=== PATIENT | male | born 1950 | race Caucasian/White ===

== ENCOUNTER 2018-09-11 10:10 | Inpatient (IN) | payer MEDICARE ==
[2018-09-11] MEDS ORDERED: Ondansetron HCl/PF 4 MG/2 ML Vial ONE (10:12)
[2018-09-11 10:26] LABS: #Eosinphils 0.1 thou/uL (0.0-0.7); #Monocytes 0.3 thou/uL (0.11-0.59); #Neutrophils 3.7 thou/uL (1.40-6.50); %Basophils 0.9 % (0.0-1.0); %Eosinophils 1.1 % (0.0-10.0); %Lymphocytes 19.3 % (21.0-51.0); %Monocytes 6.4 % (0.0-10.0); %Neutrophils 72.3 % (42.0-75.0); Hemoglobin 14.1 g/dL (14.0-18.0); Mean Corpuscular HGB CONC 34.8 g/dL (32.0-36.0); Mean Corpuscular Hemoglobin 36.6 pg (27.0-31.0); Mean Platelet Volume 7.8 fL (7.4-10.4); Platelet Count 123 thou/uL (130-400); RBC Distribution Width 11.2 % (11.5-14.5); Red Blood Cell (RBC) Count 3.86 mill/uL (4.70-6.10); White Blood Cell (WBC) Count 5.1 thou/uL (4.8-10.8)
[2018-09-11 10:34] LABS: INR-International Normal Ratio 1.3; PTT 34.3 SEC (22.9-36.1); Prothrombin Time 16.3 SEC (12.0-14.7)
[2018-09-11 10:44] LABS: ALT (SGPT) 48 U/L (8-55); AST (SGOT) 79 U/L (5-34); Albumin 4.1 g/dL (3.4-4.8); Alkaline Phosphatase 66 U/L (40-150); Anion Gap 21 mmol/L (10-20); BUN (Urea Nitrogen) 7 mg/dL (8.4-25.7); Bilirubin, Total 1.4 mg/dL (0.2-1.2); CK (CPK) 47 U/L (30-200); Calc. Creatinine Clearance 0 mL/min (70-130); Calcium 8.7 mg/dL (7.8-10.44); Carbon Dioxide 22 mmol/L (23-31); Chloride 99 mmol/L (98-107); Estimated GFR-MDRD 77; Globulin 3.3 g/dL (2.4-3.5); Glucose 109 mg/dL (80-115); Potassium 4.3 mmol/L (3.5-5.1); Protein, Total 7.4 g/dL (5.8-8.1); Sodium 138 mmol/L (136-145)
[2018-09-11 10:48] LABS: CKMB 2.2 ng/mL (0-6.6); Troponin I Less than 0.010 ng/mL (< 0.028)
--- NOTE | 2018-09-11 10:58 | CT ---
HEAD CT NONCONTRAST: INDICATIONS: Altered mental status. Slurred speech. Hypertension. FINDINGS: Mild global atrophy with mild chronic ischemic disease. No acute intracranial hemorrhage, mass effec t, or midline shift. There is compensatory dilatation of the ventricular system. Scattered retentio n cyst formation of the paranasal sinuses. IMPRESSION: No acute intracranial hemorrhage or mass effect. Telephone call placed to ER physician at 1015 hours on 09/11/2018. CODE CR POS: [facility]
[2018-09-11] MEDS ORDERED: niCARdipine 20MG In NaCl 20 MG/200 ML BAG ONE (11:03)
--- NOTE | 2018-09-11 11:04 | CT ---
CTA HEAD WITH CONTRAST WITH 3D VOLUME RENDERING CTA NECK WITH CONTRAST WITH 3D VOLUME RENDERING: Date: 09/11/18 INDICATION: Expressive aphasia, which began previous evening. Hypertension. FINDINGS: There is atherosclerosis of the aortic arch and the proximal great vessels that emanate from the aort ic arch. The bilateral common carotid arteries reveal mild multifocal scattered atherosclerosis. Ther e is prominent calcified plaque formation at each carotid bulb, which are obscured, as are the proxim al aspects of each cervical ICA due to extensive motion which precludes assessment of these regions. The mid to distal bilateral cervical ICA reveal no high grade stenosis or occlusion. There is moderat e calcific plaque of each carotid siphon. There is a dominant left vertebral artery. A small caliber right vertebral artery is present. There is scattered mild calcification of the left vertebral artery . There is a tortuous, patent basilar artery. Small caliber bilateral posterior cerebral arteries are seen. No high grade stenosis or occlusion of either MCA or MAHENDRA. Anterior communicating artery is unr emarkable. There is incidental note of pulmonary emphysema. IMPRESSION: Scattered atherosclerotic vascular disease. There is limitation by motion as discussed above. Where v isualized, there is no high grade stenosis or occlusion. Findings conveyed to stroke nurse at 1040 hours, 09/11/18. CODE CR. POS: [facility]
--- NOTE | 2018-09-11 11:34 | RAD ---
PORTABLE CHEST: History: Hypertension, stroke alert. FINDINGS: Heart size is enlarged. There are atherosclerotic changes of the aorta. Lungs show chronic change. No focal infiltrates or signs of failure. IMPRESSION: Cardiomegaly. POS: [facility]
--- NOTE | 2018-09-11 13:37 | HP ---
PRIMARY CARE PHYSICIAN: Cortney Byrd, Family Nurse Practitioner. REASON FOR ADMISSION: Hypertensive encephalopathy, rule out CVA. HISTORY OF PRESENT ILLNESS: A 68-year-old male who has underlying history of atrial fibrillation on chronic anticoagulation with Eliquis, who presented to emergency room for evaluation of altered mental status. This patient was completely fine before he went to bed. This morning around 8:30 when he woke up , he was seated at the edge of the bed and his noticed that the patient was disoriented. He was having impaired speech. Whatever he was talking, it was difficult to understand. Patient also appeared disoriented. He was not knowing where he was. He did not have any facial asymmetry. He was not having any headache. Normally, the patient goes to bathroom, but he was not able to go and whenever he was trying to wear slipper through the right foot, he was not able to wear slipper on the right foot. The patient's is not sure about any objective weakness on either side, but only she noticed that he was completely confused. She was worried about stroke and that is why Paramedics was called. When Paramedics went to his home, his blood pressure was 230/130. Patient was diaphoretic. The patient does generally have tremors, which is not new. The patient is alcoholic. He drinks almost 4-5 glasses of vodka daily and last drink was last night. He did not have any head injury. He was complaining of headache. After coming to the emergency room, he was able to move all four limbs. Initially in the emergency room, Cardene drip was started. His blood pressure was improved to 157/97 and patient was also improving and that is why Cardene drip was discontinued, and we gave him all his oral medication which he did not take this morning. In the emergency room, he had a CT head and CT angiography which was unremarkable for any acute stroke. The patient is being admitted to stroke floor for further evaluation and treatment. REVIEW OF SYSTEMS: The following complete review of systems was negative, unless otherwise mentioned in the HPI or below: Constitutional: Weight loss or gain, ability to conduct usual activities. Skin: Rash, itching. Eyes: Double vision, pain. ENT/Mouth: Nose bleeding, neck stiffness, pain, tenderness. Cardiovascular: Palpitations, dyspnea on exertion, orthopnea. Respiratory: Shortness of breath, wheezing, cough, hemoptysis, fever or night sweats. Gastrointestinal: Poor appetite, abdominal pain, heartburn, nausea, vomiting, constipation, or diarrhea. Genitourinary: Urgency, frequency, dysuria, nocturia. Musculoskeletal: Pain, swelling. Neurologic/Psychiatric: Anxiety, depression. Allergy/Immunologic: Skin rash, bleeding tendency. Please see my HPI for pertinent positive and negative. All other review of system reviewed and negative except as mentioned in the HPI. PAST MEDICAL HISTORY: Diabetes type 2, hypertension, obesity, atrial fibrillation, chronic anticoagulation, alcohol abuse, hypothyroidism, dyslipidemia. PAST SURGICAL HISTORY: Colon surgery. PAST PSYCHIATRIC HISTORY: Reviewed and negative. SOCIAL HISTORY: Patient drinks about 5 glasses of vodka every day basis. He denies any smoking. He is . He lives at home with his . FAMILY HISTORY: No family history of stroke, cancer, or coronary artery disease. EMERGENCY ROOM COURSE: The patient initially received nicardipine drip, Zofran 4 mg, now patient is receiving his home medication and labetalol p.r.n. basis. ALLERGIES: No known drug allergy. CURRENT HOME MEDICATIONS: Coreg 6.25 mg twice daily, Synthroid 88 mcg p.o. daily, lisinopril 5 mg p.o. daily, Metformin 500 mg p.o. twice daily, Zocor 10 mg p.o. at bedtime, Eliquis 5 mg p.o. b.i.d., cetirizine 10 mg p.o. daily. PHYSICAL EXAMINATION: VITAL SIGNS: On arrival, blood pressure 184/113, currently blood pressure 157/ 97, pulse 78 and irregular, respiratory rate 18, temperature 99.2, saturation 93 % on room air, weight 110 kilograms. GENERAL: Patient is currently alert, awake, follows simple commands, slightly disoriented, hypertensive. HEENT: Normocephalic, atraumatic. Eyes: Pupils round, reactive to light. Extraocular muscle intact. ENT: Oropharynx within normal limits. Moist mucous membranes. No oral lesion, no pharyngeal erythema, no exudate. NECK: Supple, no JVD, no thyromegaly, no carotid bruit. LUNGS: No rhonchi, no rales, no accessory muscles of respiration in use. CARDIAC: S1, S2 irregular. No gross murmur elicited, no gallop, no rub. ABDOMEN: Obesity present. Bowel sounds present, nontender, nondistended. No organomegaly, no mass, no suprapubic tenderness. BACK: Unremarkable, no CVA tenderness. EXTREMITIES: Upper extremity, passive movement of all joints are normal. Good distal pulsation. Lower extremities, no edema. Good distal pulsation. SKIN: No skin rash, but the patient has +2 facial plethora. PSYCHIATRIC: Normal affect. NEUROLOGIC: Nonfocal examination. At this point, the patient's speech is able to be understandable, but he is slightly confused and incoherent, but he is able to move his all 4 limbs. He does have normal baseline tremors. Patient does have neuropathic discomfort in both feet. SIGNIFICANT LABORATORY DATA: CT of brain based on my review, no acute intracranial process. CT angiography head and neck showing atherosclerotic vascular disease. Chest x-ray based on my review, no acute cardiopulmonary process. CBC: WBC 5.1, hemoglobin 14.1, MCV 105.0, platelet 123. INR 1.3. BMP: Sodium 138, potassium 4.3, chloride 99, carbon dioxide 22, anion gap 21, BUN 7, creatinine 0.97, glucose 109, calcium 8.7. LFT: Bilirubin 1.4, AST 79, ALT 48, alkaline phosphatase 66, albumin 4.1. CK 47, CK-MB 2.2, troponin I less than 0.010. Chest x-ray based on my review, no acute cardiopulmonary process. EKG showing atrial fibrillation. ASSESSMENT AND PLAN: 1. Hypertensive encephalopathy. This patient is currently confused, incoherent and his blood pressure was very high at the scene. Current confusion episode and altered mental status can be related with hypertensive encephalopathy. At this point, CT brain and CT angiography are not showing any acute ischemic insult. We will closely monitor on stroke floor for neuro check. 2. Rule out cerebrovascular accident. The patient was found initially to have slight weakness on the right side and slurred speech as well as altered mental status. Current workup, CT brain angiography is negative. We will do MRI brain for further evaluation. We will obtain echocardiography to assess ejection fraction and other structural abnormality. This patient has multiple risk factors for having stroke. 3. Hypertensive urgency/emergency. The patient's blood pressure is now stabilized in the emergency room. We will use p.r.n. basis hydralazine, labetalol, and clonidine p.r.n. basis. We will resume his home medications with Coreg and lisinopril. 4. Diabetes type 2. We will check hemoglobin A1c. Continue insulin as per sliding scale per protocol. 5. Hypothyroidism. Check TSH and continue Synthroid 88 mcg p.o. daily. 6. Atrial fibrillation, currently rate controlled. Continue Coreg 6.25 mg twice daily, anticoagulation with Eliquis 5 mg twice daily. Monitor on telemetry floor. Echocardiography and do serial cardiac enzymes x3. 7. Dyslipidemia. Check lipid profile again tomorrow and continue Zocor 10 mg p.o. at bedtime. 8. Alcohol abuse. The patient is at high risk for alcohol withdrawal. We will use Ativan on p.r.n. basis. We will also start folic acid, vitamin B12 and thiamine therapy. Counseling is given to patient to avoid alcohol abuse. 9. Microcytic anemia due to alcohol. Continue folic acid, vitamin B12 therapy. 10. Thrombocytopenia likely related with alcohol. 11. Abnormal liver function tests related with alcohol abuse, may be fatty liver. 12. Anion gap acidosis due to his alcohol abuse. 13. Deep venous thrombosis prophylaxis. The patient is already on Eliquis therapy. 14. Gastrointestinal prophylaxis. Pepcid 20 mg p.o. b.i.d. 14. Code status: The patient is FULL CODE. The patient's is surrogate decision maker. DISPOSITION PLAN: Based on clinical course. We are expecting patient's stay in hospital more than 2 midnights. Plan of care discussed with the patient and family member at bedside in the emergency room in detail. CHANDRAKANT
[2018-09-11] MEDS ORDERED: hydrALAZINE 20 MG/ML VIAL SLOW IVP PRN (15:21)
[2018-09-11] MEDS ORDERED: Calcium Carbonate 500 MG ChewTAB PO PRN (15:21)
[2018-09-11] MEDS ORDERED: Labetalol HCl 100 MG/20 ML VIAL SLOW IVP PRN (15:21)
[2018-09-11] MEDS ORDERED: Artificial Tears 18 DROP/0.9 ML EA EYE PRN (15:21)
[2018-09-11] MEDS ORDERED: HumaLOG 300 UNITS/3 ML VIAL SC PRN ×2 (15:21)
[2018-09-11] MEDS ORDERED: Lorazepam 2 MG/ML VIAL SLOW IVP PRN (15:21)
[2018-09-11] MEDS ORDERED: Bisacodyl 10 MG SUPP PR PRN (15:21)
[2018-09-11] MEDS ORDERED: Ondansetron ODT 4 MG TAB PO PRN (15:21)
[2018-09-11] MEDS ORDERED: Eucerin (Mineral Oil/Petrolatum,White) 30 gm Jar TOP PRN (15:21)
[2018-09-11] MEDS ORDERED: Lorazepam 1 MG TAB PO PRN (15:21)
[2018-09-11] MEDS ORDERED: Diazepam 5 MG TAB PO PRN (15:21)
[2018-09-11] MEDS ORDERED: cloNIDine 0.1 MG TAB PO PRN (15:21)
[2018-09-11] MEDS ORDERED: Dextrose 50% Abboject 50 ML SYRINGE SLOW IVP PRN (15:21)
[2018-09-11] MEDS ORDERED: Acetaminophen 325 MG TAB PO PRN (15:21)
[2018-09-11] MEDS ORDERED: Bisacodyl 5 MG TAB PO PRN (15:21)
[2018-09-11] MEDS ORDERED: Dextrose 5% in Water 1,000 ML IV PRN (15:21)
[2018-09-11] MEDS ORDERED: Loratadine 10 MG TAB PO PRN (15:21)
[2018-09-11] MEDS ORDERED: Zolpidem Tartrate 5 MG TAB PO PRN (15:21)
[2018-09-11] MEDS ORDERED: Loperamide HCl 2 MG CAP PO PRN (15:21)
[2018-09-11] MEDS ORDERED: HYDROcodone/Acetaminophen 5/325 mg Tablet PO PRN (15:21)
[2018-09-11] MEDS ORDERED: Ondansetron HCl/PF 4 MG/2 ML Vial IVP PRN (15:21)
[2018-09-11] MEDS ORDERED: Diabetic Tussin 200 MG/10 ML UDCUP PO PRN (15:21)
[2018-09-11] MEDS ORDERED: Sodium Chloride 0.65% Nasal 44 ML BOT EA NARE PRN (15:21)
[2018-09-11 15:54] VITALS: BMI 32.1
[2018-09-11] MEDS ORDERED: ISOVUE-370 76%-LOCM 1 ML ONE (16:06)
[2018-09-11] MEDS: Carvedilol 6.25 MG TAB PO SCH (16:52)
--- NOTE | 2018-09-11 19:06 | MRI ---
MRI BRAIN NONCONTRAST: 09/11/18 HISTORY: Altered mental status. TIA. FINDINGS: There is no evidence of acute intracranial hemorrhage or infarct. Ventricles appear normal in size, s hape and position. Mild diffuse cortical atrophy and chronic ischemic small vessel disease. No mass e ffector shift of midline structures. Mucosal thickening within each maxillary sinus. IMPRESSION: No acute intracranial abnormalities are demonstrated. POS: [facility]
[2018-09-11] MEDS ORDERED: Atorvastatin Calcium 40 MG TAB PO SCH (21:00)
[2018-09-11] MEDS: Apixaban 5 MG TAB PO SCH (21:04)
[2018-09-11] MEDS: Famotidine 20 MG TAB PO SCH (21:04)
[2018-09-12] MEDS ORDERED: Lorazepam 1 MG TAB PO PRN (03:22)
[2018-09-12 05:18] LABS: #Eosinphils 0.1 thou/uL (0.0-0.7); #Lymphocytes 1.2 thou/uL (1.20-3.40); #Monocytes 0.4 thou/uL (0.11-0.59); #Neutrophils 1.9 thou/uL (1.40-6.50); %Basophils 0.5 % (0.0-1.0); %Eosinophils 1.6 % (0.0-10.0); %Lymphocytes 32.4 % (21.0-51.0); %Monocytes 11.6 % (0.0-10.0); %Neutrophils 53.9 % (42.0-75.0); Hemoglobin 13.2 g/dL (14.0-18.0); Mean Corpuscular HGB CONC 32.9 g/dL (32.0-36.0); Mean Platelet Volume 7.9 fL (7.4-10.4); Platelet Count 99 thou/uL (130-400); RBC Distribution Width 11.2 % (11.5-14.5); Red Blood Cell (RBC) Count 3.77 mill/uL (4.70-6.10); White Blood Cell (WBC) Count 3.6 thou/uL (4.8-10.8)
[2018-09-12 05:24] LABS: ALT (SGPT) 35 U/L (8-55); AST (SGOT) 47 U/L (5-34); Albumin 3.7 g/dL (3.4-4.8); Alkaline Phosphatase 57 U/L (40-150); Anion Gap 14 mmol/L (10-20); BUN (Urea Nitrogen) 14 mg/dL (8.4-25.7); Bilirubin, Total 1.5 mg/dL (0.2-1.2); Calc. Creatinine Clearance 98 mL/min (70-130); Calcium 8.5 mg/dL (7.8-10.44); Carbon Dioxide 30 mmol/L (23-31); Cardiac Risk 2.1 (Less than 4.5); Chloride 100 mmol/L (98-107); Cholesterol 127 mg/dl (< 200 Desired); Estimated GFR-MDRD 68; Glucose 105 mg/dL (80-115); HDL Cholesterol 61 mg/dL (>60 Neg Risk); LDL Cholesterol, Calculated 52 mg/dL; Potassium 3.6 mmol/L (3.5-5.1); Protein, Total 6.7 g/dL (5.8-8.1); Sodium 140 mmol/L (136-145); Triglycerides 72 mg/dL (Less than 150)
[2018-09-12] MEDS ORDERED: Levothyroxine Sodium 88 MCG TAB PO SCH (06:00)
[2018-09-12 06:57] LABS: Syphilis Antibody Nonreactive (Nonreactive); Syphilis Antibody Index 0.08 S/CO (<1.00 Non-Reactive)
[2018-09-12] MEDS ORDERED: Lisinopril 5 MG TAB PO SCH (09:00)
[2018-09-12] MEDS ORDERED: Folic Acid 1 MG TAB PO SCH ×2 (09:00)
[2018-09-12] MEDS ORDERED: Magnesium Oxide 400 MG TAB PO SCH (09:00)
[2018-09-12] MEDS ORDERED: Cyanocobalamin (Vitamin B-12) 1,000 MCG TAB PO SCH (09:00)
[2018-09-12] MEDS ORDERED: Aspirin 81 mg Enteric Coated Tablet PO SCH (09:00)
[2018-09-12] MEDS: Carvedilol 6.25 MG TAB PO SCH ×2 (10:01→16:43)
[2018-09-12] MEDS: Apixaban 5 MG TAB PO SCH (10:02)
[2018-09-12] MEDS: Famotidine 20 MG TAB PO SCH (10:02)
[2018-09-12] MEDS: Multivit, Therapeutic 1 TAB PO SCH ×2 (10:03→10:04)
--- NOTE | 2018-09-12 10:45 | PDOC.PN ---
- Subjective Encounter Start Date: 09/12/18 Encounter Start Time: 07:30 -: old records requested/rev Patient seen and examined. No new complaints. No overnight events - Objective Resuscitation Status: Resuscitation Status FULL:Full Resuscitation MAR Reviewed: Yes Vital Signs & Weight: Vital Signs (12 hours) Temp Pulse Pulse Resp BP BP BP 09/12/18 10:03 65 09/12/18 10:01 189/102 H 09/12/18 09:20 99 209/117 H 09/12/18 08:00 97.8 F 65 20 189/108 H 173/117 H 09/12/18 04:51 153/99 H 09/12/18 04:00 98.4 F 63 18 153/99 H 09/12/18 00:00 98.7 F 66 19 148/96 H 09/11/18 23:12 148/96 H Pulse Ox 09/12/18 10:03 09/12/18 10:01 09/12/18 09:20 09/12/18 08:00 96 09/12/18 04:51 09/12/18 04:00 93 L 09/12/18 00:00 91 L 09/11/18 23:12 Weight Weight 236 lb 11.2 oz I&O: 09/11/18 09/12/18 09/13/18 06:59 06:59 06:59 Intake Total 100 480 Balance 100 480 Result Diagrams: 09/12/18 04:49 09/12/18 04:49 Additional Labs: Accuchecks 09/12/18 09/11/18 09/11/18 06:11 19:51 16:28 POC Glucose 101 127 H 125 H Radiology Reviewed by me: Yes (MRI is negative) EKG Reviewed by me: Yes Phys Exam - Physical Examination Constitutional: NAD HEENT: PERRLA, moist MMs, sclera anicteric Neck: no JVD, supple Respiratory: no wheezing, no rales, no rhonchi Cardiovascular: RRR, no significant murmur, no rub Gastrointestinal: soft, non-tender, no distention, positive bowel sounds Musculoskeletal: no edema, pulses present Neurological: non-focal, normal sensation Lymphatic: no nodes Psychiatric: normal affect, A&O x 3 Skin: no rash, normal turgor Dx/Plan (1) Hypertensive encephalopathy Code(s): I67.4 - HYPERTENSIVE ENCEPHALOPATHY Status: Resolved (2) TIA (transient ischemic attack) Code(s): G45.9 - TRANSIENT CEREBRAL ISCHEMIC ATTACK, UNSPECIFIED Status: Acute (3) Alcohol abuse Code(s): F10.10 - ALCOHOL ABUSE, UNCOMPLICATED Status: Chronic (4) BPH (benign prostatic hyperplasia) Code(s): N40.0 - BENIGN PROSTATIC HYPERPLASIA WITHOUT LOWER URINRY TRACT SYMP Status: Chronic (5) Chronic anticoagulation Code(s): Z79.01 - SENIOR CARE (CURRENT) USE OF ANTICOAGULANTS Status: Chronic (6) Diabetes type 2, controlled Code(s): E11.9 - TYPE 2 DIABETES MELLITUS WITHOUT COMPLICATIONS Status: Chronic (7) Dyslipidemia Code(s): E78.5 - HYPERLIPIDEMIA, UNSPECIFIED Status: Chronic (8) Hypertension Code(s): I10 - ESSENTIAL (PRIMARY) HYPERTENSION Status: Chronic (9) Hypothyroidism Code(s): E03.9 - HYPOTHYROIDISM, UNSPECIFIED Status: Chronic (10) Obesity (BMI 30.0-34.9) Code(s): E66.9 - OBESITY, UNSPECIFIED Status: Chronic (11) PAF (paroxysmal atrial fibrillation) Code(s): I48.0 - PAROXYSMAL ATRIAL FIBRILLATION Status: Chronic - Plan cont current plan of care, PT/OT * change lisinopril 10 mg po bid * continue his home medication * continue PT/OT * echo pending result * will adjust BP meds today * watch for any alcohol withdrawl today * medication reviewed as below * symptomatic treatment * expecting discharge soon. Review of Systems - Review of Systems ENT: negative: Ear Pain, Ear Discharge, Nose Pain, Nose Discharge, Nose Congestion, Mouth Pain, Mouth Swelling, Throat Pain, Throat Swelling, Other Respiratory: negative: Cough, Dry, Shortness of Breath, Hemoptysis, SOB with Excertion, Pleuritic Pain, Sputum, Wheezing Cardiovascular: negative: chest pain, palpitations, orthopnea, paroxysmal nocturnal dyspnea, edema, light headedness, other Gastrointestinal: negative: Nausea, Vomiting, Abdominal Pain, Diarrhea, Constipation, Melena, Hematochezia, Other Genitourinary: negative: Dysuria, Frequency, Incontinence, Hematuria, Retention , Other Musculoskeletal: negative: Neck Pain, Shoulder Pain, Arm Pain, Back Pain, Hand Pain, Leg Pain, Foot Pain, Other Skin: negative: Rash, Lesions, [place], Bruising, Other Neurological: negative: Weakness, Numbness, Incoordination, Change in Speech, Confusion, Seizures, Other - Medications/Allergies Allergies/Adverse Reactions: Allergies Allergy/AdvReac Type Severity Reaction Status Date / Time No Known Allergies Allergy Verified 09/11/18 16:05 Medications: Current Medications Acetaminophen (Tylenol) 650 mg PO Q4H PRN PRN Reason: Headache/Fever/Mild Pain (1-3) Hydrocodone Bitart/Acetaminophen ([place] 5/325) 1 tab PO Q4H PRN PRN Reason: Moderate Pain (4-6) Last Admin: 09/11/18 16:51 Dose: 1 tab Apixaban (Eliquis) 5 mg PO BID [facility] Last Admin: 09/12/18 10:02 Dose: 5 mg Artificial Tears (Tears Naturale) 2 drop EA EYE PRN PRN PRN Reason: Dry Eyes Aspirin (Ecotrin) 81 mg PO DAILY [facility] Last Admin: 09/12/18 10:02 Dose: 81 mg Atorvastatin Calcium (Lipitor) 40 mg PO HS [facility] Last Admin: 09/11/18 21:04 Dose: 40 mg Bisacodyl (Dulcolax) 10 mg PO DAILYPRN PRN PRN Reason: Constipation Bisacodyl (Dulcolax) 10 mg MS DAILYPRN PRN PRN Reason: Constipation Calcium Carbonate (Tums) 1,000 mg PO Q4H PRN PRN Reason: Heartburn or Indigestion Carvedilol (Coreg) 6.25 mg PO BID-[facility] Last Admin: 09/12/18 10:01 Dose: 6.25 mg Clonidine (Catapres) 0.1 mg PO Q4H PRN PRN Reason: SBP GREATER THAN 160 Last Admin: 09/11/18 19:29 Dose: 0.1 mg Cyanocobalamin (Vitamin B-12) 1,000 mcg PO DAILY [facility] Last Admin: 09/12/18 10:02 Dose: 1,000 mcg Dextrose/Water (Dextrose 50%) 25 gm SLOW IVP PRN PRN PRN Reason: Hypoglycemia Diazepam (Valium) 5 mg PO Q12H PRN PRN Reason: Anxiety Famotidine (Pepcid) 20 mg PO BID [facility] Last Admin: 09/12/18 10:02 Dose: 20 mg Folic Acid (Folvite) 1 mg PO DAILY [facility] Last Admin: 09/12/18 10:03 Dose: 1 mg Glucagon (Glucagon) 1 mg IM PRN PRN PRN Reason: Hypoglycemia Guaifenesin (Robitussin Sf) 200 mg PO Q4H PRN PRN Reason: Cough Hydralazine HCl (Apresoline) 10 mg SLOW IVP Q2H PRN PRN Reason: SBP GREATER THAN 160 Dextrose/Water (D5w) 1,000 mls @ 0 mls/hr IV .Q0M PRN PRN Reason: Hypoglycemia Insulin Human Lispro (Humalog) 0 units SC .MODERATE SLIDING SC PRN PRN Reason: Moderate [place] Scale Insulin Human Lispro (Humalog) 0 units SC .BEDTIME SLIDING SC PRN PRN Reason: Bedtime Correctional Scale Labetalol HCl (Normodyne) 20 mg SLOW IVP Q2H PRN PRN Reason: SBP GREATER THAN 160 Levothyroxine Sodium (Synthroid) 88 mcg PO 0600 [facility] Last Admin: 09/12/18 06:02 Dose: 88 mcg Lisinopril (Zestril) 10 mg PO BID [facility] Loperamide HCl (Imodium) 2 mg PO PRN PRN PRN Reason: Diarrhea/Loose Stools Loratadine (Claritin) 10 mg PO DAILYPRN PRN PRN Reason: Sinus Symptoms Lorazepam (Ativan) 1 mg SLOW IVP Q4H PRN PRN Reason: Anxiety/Agitation Lorazepam (Ativan) 2 mg PO Q2H PRN PRN Reason: Anxiety, tremors, agitation Magnesium Oxide (Magnesium Oxide) 400 mg PO DAILY [facility] Last Admin: 09/12/18 10:04 Dose: 400 mg Mineral Oil/White Petrolatum (Eucerin Cream) 0 gm TOP BIDPRN PRN PRN Reason: Dry Skin Multivitamins (Theragran) 1 tab PO DAILY [facility] Last Admin: 09/12/18 10:04 Dose: 1 tab Ondansetron HCl (Zofran Odt) 4 mg PO Q6H PRN PRN Reason: Nausea/Vomiting Ondansetron HCl (Zofran) 4 mg IVP Q6H PRN PRN Reason: Nausea/Vomiting Sodium Chloride ([place] Nasal [place] 0.65%) 0 ml EA NARE QIDPRN PRN PRN Reason: Nasal Congestion Sodium Chloride (Flush - Normal Saline) 10 ml IVF PRN PRN PRN Reason: Saline Flush Thiamine HCl (Thiamine) 100 mg PO DAILY [facility] Last Admin: 09/12/18 10:03 Dose: 100 mg Zolpidem Tartrate (Ambien) 5 mg PO HSPRN PRN PRN Reason: Insomnia
[2018-09-12] MEDS ORDERED: Magnesium Sulfate 4 GM in Sodium Chloride 0.9% 250 ML 250 ML IVPB SCH (16:00)
[2018-09-12 16:06] VITALS: BP 161/105; TEMP 97.6
--- NOTE | 2018-09-12 16:11 | DIS ---
DATE OF ADMISSION: 09/11/2018 DATE OF DISCHARGE: 09/12/2018 PRIMARY CARE PHYSICIAN: ADLOPH Ford. DISCHARGE DISPOSITION: Home. PRIMARY DISCHARGE DIAGNOSES: 1. Transient ischemic attack. 2. Hypertensive encephalopathy, improved. 3. Hypomagnesemia, replaced. SECONDARY DISCHARGE DIAGNOSES: Paroxysmal atrial fibrillation, chronic anticoagulation with Eliquis, obesity with BMI of 32, hypothyroidism, hypertension, dyslipidemia, diabetes type 2, chronic anticoa gulation with Eliquis, benign enlargement of prostate, alcohol abuse, morbid obesity with BMI 32. PRIMARY PROCEDURE/OPERATION: None. RADIOLOGICAL INVESTIGATION: CT brain normal. CT angiography normal. Chest x-ray normal. MRI brain negative. Echocardiography showed normal EF, atrial fibrillation. SIGNIFICANT LABORATORY DATA: Syphilis negative. Creatinine 1.07. Electrolytes only magnesium was l ow, but other electrolytes normal. LFT normal, homocysteine 13.6, INR 1.3, MCV 106, hemoglobin 13.2, WBC 3.6, platelet 99,000. DISCHARGE MEDICATIONS: Ecotrin 81 mg p.o. daily, Eliquis 5 mg p.o. b.i.d., Coreg 6.25 mg p.o. b.i.d. , cetirizine 10 mg p.o. daily, Synthroid 88 mcg p.o. daily, metformin 500 mg p.o. b.i.d., multivitami n 1 tablet p.o. daily, [place] 450 mg p.o. daily, Zocor 10 mg p.o. daily, vitamin B12 1000 mcg p .o. daily, Pepcid 20 mg p.o. b.i.d., folic acid 1 mg p.o. daily, lisinopril 10 mg p.o. b.i.d., magnes ium oxide 400 mg p.o. daily, thiamine 100 mg p.o. daily. CONTRAINDICATIONS: None. CODE STATUS: Full code. INPATIENT CONSULTANTS: None. ALLERGIES: No known drug allergy. DISCHARGE PLAN: Post hospital, the patient will follow up with primary care physician in 1 week. HOSPITAL COURSE: A 68-year-old male who was admitted by me yesterday. Please see my HPI for further details. The patient had acute onset of encephalopathy. At that time, his blood pressure was very high. He was also having a little bit focal neurological deficit with slurred speech. Stroke alert was initiated in the emergency room. The patient had CT brain and CT [place] without any ac [place] process. The patient's symptoms improved. He was not qualifying for any tPA intervention. The patient was admitted to stroke floor. We did MRI. MRI brain is negative for any stroke. Echocardio graphy showed normal EF. He has underlying atrial fibrillation. He had hypomagnesemia, which was re placed before discharge. We provided extensive patient education about avoidance of alcohol. During this admission, we noted that his blood pressure was running high and that is why we increased lisin opril to 10 mg twice daily. Rest of medication was continued as per previous. At this point, the patient is back to normal. He did very well with physical therapy and occupationa l therapy. We have ruled out stroke. Healthy lifestyle measures discussed with the patient. The patient wants to go home today. He will continue all above-mentioned medication upon discharge. The patient is stable for discharge today.
[2018-09-12] MEDS ORDERED: Lisinopril 10 MG TAB PO SCH (21:00)
== END 2018-09-12 19:36 | disposition home or self-care (01) | DRG 78 ==
LOC: ERS 10:10 → 2SE 12:39
PROVIDERS: ADMIT Internal Medicine; ATTEND Internal Medicine
DX: I67.4 Hypertensive encephalopathy (principal); G45.9 Transient cerebral ischemic attack, unspecified; E83.42 Hypomagnesemia; I48.0 Paroxysmal atrial fibrillation; E03.9 Hypothyroidism, unspecified; I10 Essential (primary) hypertension; E78.5 Hyperlipidemia, unspecified; E11.9 Type 2 diabetes mellitus without complications; E66.01 Morbid (severe) obesity due to excess calories; Z68.32 Body mass index [BMI] 32.0-32.9, adult; N40.0 Benign prostatic hyperplasia without lower urinary tract symptoms; F10.10 Alcohol abuse, uncomplicated; Z79.01 Long term (current) use of anticoagulants
CPT/HCPCS: 36415; 36416; 70450; 70496; 70498; 70551; 71045; 80053; 80061; 82550; 82553; 83090; 83735; 84484; 85025; 85610; 85730; 86780; 86850; 86900; 86901; 93005; 93306; 96365; 96366; 96375; G8978-GP-CN; G8979-GP-CJ; G8987-GO-CJ; G8988-GO-CI; G8996-GN-CI; G8997-GN-CI; J2405; J3475; J7050